=== PATIENT | male | born 1950 | race Caucasian/White ===

== ENCOUNTER → 2025-02-03 11:21 | Outpatient (REF) | payer MEDICARE, BC, SELFPAY | LOC: MRI 3T 11:21 | PROVIDERS: ATTENDING PHYSICIAN Hospitalist | DX: M25.561 Pain in right knee (principal) | CPT/HCPCS: 73721 ==

== ENCOUNTER 2025-03-16 13:19 | Outpatient (RCR) | payer MEDICARE, BC, SELFPAY | END 2025-03-16 23:59 | disposition home or self-care (01) | LOC: RPT 13:19 | PROVIDERS: ATTENDING PHYSICIAN Orthopaedic Surgery; FAMILY PHYSICIAN Hospitalist | DX: Z47.1 Aftercare following joint replacement surgery (principal); M17.11 Unilateral primary osteoarthritis, right knee; M25.561 Pain in right knee; Z73.6 Limitation of activities due to disability; R26.89 Other abnormalities of gait and mobility; M62.81 Muscle weakness (generalized); Z96.651 Presence of right artificial knee joint | CPT/HCPCS: 97010; 97110; 97162; 97530 ==

== ENCOUNTER 2025-04-11 09:55 | Outpatient (RCR) | payer MEDICARE, BC, SELFPAY | END 2025-04-11 23:59 | disposition home or self-care (01) | LOC: RPT 09:55 | PROVIDERS: ATTENDING PHYSICIAN Orthopaedic Surgery; FAMILY PHYSICIAN Hospitalist | DX: Z47.1 Aftercare following joint replacement surgery (principal); M17.11 Unilateral primary osteoarthritis, right knee; M25.561 Pain in right knee; Z73.6 Limitation of activities due to disability; R26.89 Other abnormalities of gait and mobility; M62.81 Muscle weakness (generalized); Z96.651 Presence of right artificial knee joint | CPT/HCPCS: 97110; 97530 ==

== ENCOUNTER 2025-05-15 08:39 | Outpatient (RCR) | payer MEDICARE, BC, SELFPAY | END 2025-05-16 14:24 | disposition home or self-care (01) | LOC: RPT 08:39 | PROVIDERS: ATTENDING PHYSICIAN Orthopaedic Surgery; FAMILY PHYSICIAN Hospitalist | DX: Z47.1 Aftercare following joint replacement surgery (principal); M17.11 Unilateral primary osteoarthritis, right knee; M25.561 Pain in right knee; Z73.6 Limitation of activities due to disability; R26.89 Other abnormalities of gait and mobility; M62.81 Muscle weakness (generalized); Z96.651 Presence of right artificial knee joint | CPT/HCPCS: 97110; 97530 ==